=== PATIENT | female | born 1955 | race Caucasian/White ===

== ENCOUNTER 2017-07-25 23:35 | Emergency (ER) | payer MEDICAID ==
[~2017-07-25] VITALS: Ht 170.2 cm; Wt 61.2 kg
[~2017-07-25 23:35] MED LIST: CARI-277 PO; CLIN150C PO; ENAL2.5T PO; FER325T PO; NOR10T PO; TRAM50TA2 PO
[2017-07-25 23:49] VITALS: BP 130/100
== END 2017-07-26 01:00 | disposition left against medical advice (07) ==
LOC: EDUNIT# 23:35 → EDBD 23:35 → ER 23:38
DX: R04.0 Epistaxis (principal); Z53.21 Procedure and treatment not carried out due to patient leaving prior to being seen by health care provider

== ENCOUNTER 2019-02-26 11:34 | Emergency (ER) | payer MEDICAID ==
[~2019-02-26] VITALS: Ht 170.2 cm; Wt 59.0 kg
[2019-02-26 12:39] VITALS: BP 156/98
[2019-02-26] MEDS ORDERED: HYDROcodone-ACET 5/325MG TAB PO ONE ×2 (13:00)
[2019-02-26] MEDS ORDERED: METHOCARBAMOL 500 MG TAB PO ONE ×2 (13:00)
== END 2019-02-26 13:49 | disposition home or self-care (01) ==
LOC: ER 11:34
DX: M54.9 Dorsalgia, unspecified (principal); I10 Essential (primary) hypertension; F17.210 Nicotine dependence, cigarettes, uncomplicated; Z76.0 Encounter for issue of repeat prescription; Z90.89 Acquired absence of other organs; Z79.2 Long term (current) use of antibiotics; Z79.899 Other long term (current) drug therapy

== ENCOUNTER 2019-04-23 17:30 | Emergency (ER) | payer MEDICAID ==
[~2019-04-23] VITALS: Ht 170.2 cm; Wt 61.2 kg
[2019-04-23 18:06] VITALS: BP 128/98
[2019-04-23] MEDS ORDERED: methylPREDNISolone SOD SUCC 125 MG/2 ML VL IM ONE (20:45)
[2019-04-23] MEDS ORDERED: KETOROLAC TROMETH 60MG/2ML VIAL IM ONE (20:45)
== END 2019-04-23 21:56 | disposition home or self-care (01) ==
LOC: ER 17:30
DX: M54.42 Lumbago with sciatica, left side (principal); I10 Essential (primary) hypertension; F17.210 Nicotine dependence, cigarettes, uncomplicated
CPT/HCPCS: 96372; 99283; J1885; J2930